=== PATIENT | female | born 2000 | race Caucasian/White ===

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

== ENCOUNTER 2018-02-27 03:06 | Emergency (ER) | END 2018-02-27 05:41 | disposition home or self-care (01) ==

== ENCOUNTER 2018-05-29 11:59 | Emergency (ER) | END 2018-05-29 15:15 | disposition home or self-care (01) ==

== ENCOUNTER 2019-02-17 12:22 | Emergency (ER) | payer OTHER ==
[~2019-02-17] VITALS: Ht 157.5 cm; Wt 82.5 kg
[~2019-02-17 12:22] MED LIST changes: +FLUT16SP17 NASAL; +GUAI120S25 PO; -GUAI120S26 PO; +IBUP-1561 PO; -IBUP400T22 PO; +NAPR-985 PO; +RANI150T35 PO; -RANI150T9 PO
[2019-02-17 12:28] VITALS: BP 113/67; PULSE 100; RESP 18; Ht 157.5 cm; Wt 82.5 kg
[2019-02-17] MEDS ORDERED: ONDANSETRON (ODT) 4 MG TAB ODT STA (12:44)
[2019-02-17] MEDS ORDERED: BELLADONNA/PHENOBARBITAL TAB PO STA (12:44)
[2019-02-17] MEDS ORDERED: LIDOCAINE/MYLANTA 40 ML BTL PO STA (12:44)
--- NOTE | 2019-02-17 14:52 | ERD ---
ER Documentation Chief Complaint Chief Complaint vomit p eating x1mo; weak. R low molar pain x1wk p extraction. HPI 18-year-old female presenting with vomiting after she eats for the last month. Patient states that she feels weak. She had one episode of vomiting with a little blood earlier today. Child sometimes nauseous but does not think she is . Denies medical problems. There is some burning in the epigastric region. Denies chest pain or shortness of breath. Denies medical problems. NKDA. Surgical history denies. Social history denies ROS All systems reviewed and are negative except as per history of present illness. Medications Home Meds Active Scripts Acetaminophen* (Tylenol*) 325 Mg Tablet, 2 TAB PO Q6 PRN for PAIN AND OR ELEVATED TEMP, #20 TAB Prov:YEN WAY PA-C 02/17/19 Famotidine* (Pepcid*) 20 Mg Tablet, 20 MG PO BID for 4 Days, #30 TAB Prov:YEN WAY PA-C 02/17/19 Naproxen* (Naprosyn*) 500 Mg Tablet, 500 MG PO BID PRN for PAIN AND/OR INFLAMMATION, #30 TAB Prov:ANA TURCIOS PA-C 05/29/18 Naproxen* (Naprosyn*) 500 Mg Tablet, 500 MG PO BID PRN for PAIN AND/OR INFLAMMATION, #30 TAB Prov:YEN WAY PA-C 02/27/18 Ibuprofen* (Motrin*) 600 Mg Tab, 600 MG PO Q6, #30 TAB Prov:EDDIE DOMINGUEZ PA-C 05/19/17 Fluticasone Propionate* (Fluticasone Propionate* Nasal) 50 Mcg/[place] - 16 Gm [place].susp, 1 SPRAY NASAL BID, #1 BOTTLE TO EACH NOSTRIL Prov:EDDIE DOMINGUEZ PA-C 05/19/17 Cetirizine Hcl* (Zyrtec*) 10 Mg Capsule, 10 MG PO DAILY, #10 TAB.CHEW Prov:EDDIE DOMINGUEZ PA-C 05/19/17 Phenazopyridine Hcl* (Pyridium*) 100 Mg Tab, 100 MG PO BID PRN for URINARY PAIN, #10 TAB Prov:BRENDA STANTON PA-C 04/17/17 Famotidine* (Pepcid*) 20 Mg Tablet, 20 MG PO QHS, #20 TAB Prov:NISA PLASENCIA PA-C 12/16/16 Simethicone (GAS RELIEF) 80 Mg Tab.chew, 80 MG PO QHS, #10 TAB.CHEW Prov:NISA PLASENCIA PA-C 12/16/16 Ibuprofen* (Motrin*) 600 Mg Tab, 600 MG PO Q6, #30 TAB Prov:JATINDER ESPINOZAC 10/31/16 Ibuprofen* (Motrin*) 400 Mg Tab, 400 MG PO Q6H PRN for PAIN AND OR ELEVATED TEMP, #30 TAB Prov:DANYELLE MARTÍNEZ NP 03/26/16 Cetirizine Hcl* (Zyrtec*) 10 Mg Capsule, 10 MG PO DAILY, #30 TAB.CHEW Prov:DANYELLE MARTÍNEZ NP 03/26/16 Pqxqhuuoexb-G-Bcmoxyjlsf Hb* (Guaifenesin* DM Syrup) 120 Ml Syrup, 10 ML PO Q4H PRN for COUGH, #120 ML Prov:DANYELLE MARTÍNEZ NP 03/26/16 Acetaminophen/Caffeine (Excedrin Tension Headache Cplt) 1 Each Tablet, 1 EACH PO Q6 PRN for HEADACHE, #20 TAB Prov:KEVIN CHING NP 03/20/16 Acetaminophen* (Tylenol*) 325 Mg Tablet, 1 TAB PO Q6 PRN for PAIN AND OR ELEVATED TEMP, #20 TAB Prov:ANA TURCIOS PA-C 11/13/15 Ibuprofen* (Motrin*) 400 Mg Tab, 400 MG PO Q6, #30 TAB Prov:JOSE REED 09/28/15 Omeprazole* (Prilosec*) 40 Mg Capsule.dr, 40 MG PO DAILY, #30 CAP Prov:EDDIE DOMINGUEZ PA-C 04/26/15 Ranitidine Hcl* (Zantac*) 150 Mg Tablet, 150 MG PO BID PRN for PAIN, #30 TAB Prov:EDDIE DOMINGUEZ PA-C 04/26/15 Allergies Allergies: Coded Allergies: No Known Allergy (Unverified , 05/29/18) PMhx/Soc History of Surgery: No Anesthesia Reaction: No Hx Neurological Disorder: No Hx Respiratory Disorders: No Hx Cardiac Disorders: No Hx Psychiatric Problems: No Hx Miscellaneous Medical Probl: No Hx Alcohol Use: No Hx Substance Use: No Hx Tobacco Use: No Smoking Status: Never smoker FmHx Family History: No diabetes, No coronary disease, No other Physical Exam Vitals Vital Signs Date Temp Pulse Resp B/P (MAP) Pulse Ox O2 O2 Flow FiO2 Time Delivery Rate 02/17/19 98.4 100 18 113/67 99 12:28 (82) Physical Exam GENERAL: The patient is well-appearing, well-nourished, in no acute distress HEENT: Atraumatic. Conjunctivae are pink. Pupils equal, round, and reactive to light. There is no scleral icterus. Tympanic membranes clear bilaterally. Oropharynx clear. CHEST: Clear to auscultation bilaterally. There are no rales, wheezes or rhonchi. HEART: Regular rate and rhythm. No murmurs, clicks, rubs or gallops. ABDOMEN:Soft, nontender and nondistended. Good bowel sounds. No rebound or gu arding. No gross peritonitis. No gross organomegaly or masses. Result Diagram: 02/17/19 1253 02/17/19 1253 Results 24 hrs Laboratory Tests Test 02/17/19 12:53 02/17/19 13:02 White Blood Count 8.0 10^3/ul Red Blood Count 4.98 10^6/ul Hemoglobin 12.1 g/dl Hematocrit 39.1 % Mean Corpuscular Volume 78.5 fl Mean Corpuscular Hemoglobin 24.3 pg Mean Corpuscular Hemoglobin Concent 30.9 g/dl Red Cell Distribution Width 13.8 % Platelet Count 334 10^3/UL Mean Platelet Volume 11.7 fl Immature Granulocytes % 0.200 % Neutrophils % 55.9 % Lymphocytes % 34.0 % Monocytes % 7.2 % Eosinophils % 2.0 % Basophils % 0.7 % Nucleated Red Blood Cells % 0.0 /100WBC Immature Granulocytes # 0.020 10^3/ul Neutrophils # 4.5 10^3/ul Lymphocytes # 2.7 10^3/ul Monocytes # 0.6 10^3/ul Eosinophils # 0.2 10^3/ul Basophils # 0.1 10^3/ul Nucleated Red Blood Cells # 0.0 10^3/ul Urine Color STRAW Urine Clarity CLEAR Urine pH 6.0 Urine Specific [place] 1.004 Urine Ketones NEGATIVE mg/dL Urine Nitrite NEGATIVE mg/dL Urine Bilirubin NEGATIVE mg/dL Urine Urobilinogen NEGATIVE mg/dL Urine Leukocyte Esterase NEGATIVE Vy/ul Urine Hemoglobin NEGATIVE mg/dL Urine Glucose NEGATIVE mg/dL Urine Total Protein NEGATIVE mg/dl Sodium Level 139 mmol/L Potassium Level 4.0 mmol/L Chloride Level 105 mmol/L Carbon Dioxide Level 27 mmol/L Anion Gap 7 Blood Urea Nitrogen 8 mg/dl Creatinine 0.75 mg/dl Est Glomerular Filtrat Rate mL/min > 60 mL/min Glucose Level 99 mg/dl Calcium Level 9.6 mg/dl Total Bilirubin 0.4 mg/dl Direct Bilirubin 0.00 mg/dl Indirect Bilirubin 0.4 mg/dl Aspartate Amino Transf (AST/SGOT) 21 IU/L Alanine Aminotransferase (ALT/SGPT) 15 IU/L Alkaline Phosphatase 81 IU/L Total Protein 8.3 g/dl Albumin 4.3 g/dl Globulin 4.00 g/dl Albumin/Globulin Ratio 1.07 POC Beta HCG, Qualitative NEGATIVE Current Medications Medications Dose Sig/Hiram Start Time Status Last (Trade) Ordered Route PRN Stop Time Admin Dose Reason Admin 40 ml ONCE STAT 02/17/19 DC 02/17/19 Miscellaneous PO 12:44 02/17/19 13:01 Medication 12:46 (Gi Cocktail (2)) Bell[place]onna/ 2 tab ONCE STAT 02/17/19 DC 02/17/19 Phenobarbital PO 12:44 02/17/19 13:02 () 12:46 Ondansetron 4 mg ONCE STAT 02/17/19 DC 02/17/19 HCl (Zofran ODT 12:44 02/17/19 13:02 Odt) 12:46 Procedures/MDM MDM: 18-year-old female presenting with vomiting. Patient's blood work is within normal limits and exam is non-concerning with normal vitals. Patient's symptoms are likely associated with acid reflux and I will treat with medications. I do not feel imaging is indicated I have low suspicion for acute abdominal emergency or dehydration at this time. I have low suspicion for cardiac or pulmonary emergency. Patient is discharged with strict ER precautions and told to follow-up with primary care within 1 to 2 days for close evaluation. Patient is told symptoms change or worsen to return immediately to the ER. All questions answered at discharge Departure Diagnosis: Primary Impression: Epigastric pain Additional Impression: Vomiting Condition: Stable Patient Instructions: Vomiting (4Y-Adult), Epigastric Pain (Uncertain Cause) Additional Instructions: FOLLOW UP WITH YOUR PRIMARY CARE PHYSICIAN TOMORROW.Return to this facility if you are not improving as expected. YEN WAY PA-C Feb 17, 2019 14:52
== END 2019-02-17 13:55 | disposition home or self-care (01) ==
LOC: FTE 12:22
DX: R10.13 Epigastric pain (principal)
CPT/HCPCS: 36415; 80053; 81003; 81025; 85025; Z7502; Z7610; 99283